=== PATIENT | female | born 1970 | race Caucasian/White ===

== ENCOUNTER 2016-05-24 07:30 | Emergency (ER) | payer MEDICAID, OTHER ==
[~2016-05-24] VITALS: Wt 69.0 kg
[~2016-05-24 07:30] MED LIST: IBUP100T33
[2016-05-24] MEDS ORDERED: SOD CHLORIDE 0.9% 1,000 ML IV STA (07:41)
[2016-05-24] MEDS ORDERED: ONDANSETRON 4 MG INJ IV STA (07:41)
[2016-05-24] MEDS ORDERED: LORAZEPAM 2 MG INJ IV ONE (08:00)
[2016-05-24 08:20] LABS: ADD SCAN DIFF NO
[2016-05-24] MEDS ORDERED: ONDANSETRON (ODT) 4 MG TAB ODT STA ×2 (08:21→10:45)
[2016-05-24] MEDS ORDERED: LORAZEPAM 1 MG TAB PO ONE (08:30)
[2016-05-24 08:32] LABS: BASOPHILS % 0.1 % (0.0-2.0); HEMATOCRIT 38.9 % (37.0-47.0); HEMOGLOBIN 13.2 g/dl (12.0-16.0); LYMPHOCYTES # 0.6 10^3/ul (0.8-2.9); LYMPHOCYTES % 6.6 % (15.0-51.0); MEAN CORPUSCULAR HEMOGLOBIN 33.2 pg (29.0-33.0); MEAN CORPUSCULAR HGB CONC 33.9 g/dl (32.0-37.0); MEAN CORPUSCULAR VOLUME 97.7 fl (82.0-101.0); MEAN PLATELET VOLUME 10.7 fl (7.4-10.4); MONOCYTE # 0.2 10^3/ul (0.3-0.9); MONOCYTES % 2.1 % (0.0-11.0); NEUTROPHIL # 8.4 10^3/ul (1.6-7.5); NEUTROPHILS % 90.8 % (39.0-77.0); PLATELET COUNT 242 10^3/UL (140-415); RED BLOOD COUNT 3.98 10^6/ul (4.20-5.40); RED CELL DISTRIBUTION WIDTH 12.8 % (11.5-14.5); WHITE BLOOD COUNT 9.2 10^3/ul (4.8-10.8)
[2016-05-24 09:41] LABS: ALBUMIN 4.4 g/dl (3.3-4.9); POTASSIUM 3.8 mmol/L (3.5-5.1)
[2016-05-24 09:43] LABS: BILIRUBIN,INDIRECT 0.4 mg/dl (0-1.1); BILIRUBIN,TOTAL 0.4 mg/dl (0.2-1.3); CREATININE 0.68 mg/dl (0.44-1.00)
[2016-05-24 09:44] LABS: ALBUMIN/GLOBULIN RATIO 1.37; CALCIUM 9.6 mg/dl (8.4-10.2); TOTAL PROTEIN 7.6 g/dl (6.1-8.1)
[2016-05-24] MEDS ORDERED: ONDA4TAB14 PO (10:46)
--- NOTE | 2016-05-24 11:04 | ERD ---
ER Documentation Chief Complaint Date/Time DATE: 05/24/16 TIME: 11:02 Chief Complaint NAUSEA AND VOMITING SINCE LAST NIGHT. IN CUSTODY OF [employer]. HPI Patient is a 46-year-old female with back pain who presents with abdominal pain and vomiting. The patient was brought in by police. The patient says that she has been vomiting profusely. The symptoms started yesterday at noon but she said they have really been there for the past 8 weeks. She tried Librium and Compazine. She was feeling weak. She says "I have a viral infection and a staph infection". She had subjective fever. She also had diarrhea. She says that her pain is in the upper abdomen. She says "I feel something moving inside me". She says that her last alcohol was 4 days ago. Upon review of old medical records the patient one previous visit to the ER in 2009. Review of the emergency department information exchange system shows visits for separate emergency departments. She does not currently have a primary doctor. She has had appendectomy and cholecystectomy in the past. ROS All systems reviewed and are negative except as per history of present illness. Medications Home Meds Active Scripts Ondansetron (Ondansetron Odt) 4 Mg Tab.rapdis, 4 MG PO Q6H Y for NAUSEA AND/OR VOMITING, #30 TAB Prov:BRENDA BARRIENTOS MD 05/24/16 Discontinued Reported Medications Ibuprofen (Motrin) 100 Mg Tablet 09/02/09 [None] No Conflict Check 09/01/09 Allergies Allergies: Coded Allergies: No Known Allergies (Verified Allergy, Mild, 05/24/16) PMhx/Soc Medical and Surgical Hx: pt denies Medical Hx History of Surgery: No Anesthesia Reaction: No Hx Neurological Disorder: No Hx Respiratory Disorders: No Hx Cardiac Disorders: No Hx Psychiatric Problems: No Hx Miscellaneous Medical Probl: No Hx Alcohol Use: No Hx Substance Use: No Hx Tobacco Use: No Smoking Status: Never smoker FmHx Family History: No diabetes Physical Exam Vitals Vital Signs Date Time Temp Pulse Resp B/P Pulse Ox O2 Delivery O2 Flow Rate FiO2 05/24/16 07:37 98.5 68 20 126/75 95 Physical Exam Const: Mild distress Head: Atraumatic Eyes: Normal Conjunctiva ENT: Normal External Ears, Nose and Mouth. Neck: Full range of motion..~ No meningismus. Resp: Clear to auscultation bilaterally Cardio: Regular rate and rhythm, no murmurs Abd: Soft, upper epigastric pain without rebound or guarding Skin: No petechiae or rashes Back: No midline or flank tenderness Ext: No cyanosis, or edema Neur: Awake and alert Psych: Normal Mood and Affect Result Diagram: 05/24/16 0800 05/24/16 0915 Results 24 hrs Laboratory Tests Test 05/24/16 08:00 05/24/16 09:15 White Blood Count 9.210^3/ul Red Blood Count 3.9810^6/ul Hemoglobin 13.2g/dl Hematocrit 38.9% Mean Corpuscular Volume 97.7fl Mean Corpuscular Hemoglobin 33.2pg Mean Corpuscular Hemoglobin Concent 33.9g/dl Red Cell Distribution Width 12.8% Platelet Count 77822^3/UL Mean Platelet Volume 10.7fl Neutrophils % 90.8% Lymphocytes % 6.6% Monocytes % 2.1% Eosinophils % 0.0% Basophils % 0.1% Nucleated Red Blood Cells % 0.0/100WBC Neutrophils # 8.410^3/ul Lymphocytes # 0.610^3/ul Monocytes # 0.210^3/ul Eosinophils # 0.010^3/ul Basophils # 0.010^3/ul Nucleated Red Blood Cells # 0.010^3/ul Sodium Level 138mmol/L Potassium Level 3.8mmol/L Chloride Level 99mmol/L Carbon Dioxide Level 27mmol/L Anion Gap 16 Blood Urea Nitrogen 11mg/dl Creatinine 0.68mg/dl Glucose Level 146mg/dl Calcium Level 9.6mg/dl Total Bilirubin 0.4mg/dl Direct Bilirubin 0.00mg/dl Indirect Bilirubin 0.4mg/dl Aspartate Amino Transf (AST/SGOT) 37IU/L Alanine Aminotransferase (ALT/SGPT) 38IU/L Alkaline Phosphatase 108IU/L Total Protein 7.6g/dl Albumin 4.4g/dl Globulin 3.20g/dl Albumin/Globulin Ratio 1.37 Lipase 64U/L Serum HCG, Qualitative NEGATIVE Current Medications Medications (Trade) Dose Ordered Sig/[place]ico Route PRN Reason Start Time Stop Time Status Last Admin Dose Admin Sodium Chloride (NS) 1,000 ml @ 1,000 mls/hr Q1H STAT IV 05/24/16 07:41 05/24/16 08:22 DC Ondansetron HCl (Zofran Inj) 4 mg ONCE STAT IV 05/24/16 07:41 05/24/16 08:22 DC Lorazepam (Ativan) 1 mg ONCE ONCE IV 05/24/16 08:00 05/24/16 08:22 DC Ondansetron HCl (Zofran Odt) 4 mg ONCE STAT ODT 05/24/16 08:21 05/24/16 08:22 DC 05/24/16 09:25 Lorazepam (Ativan) 1 mg ONCE ONCE PO 05/24/16 08:30 05/24/16 08:31 DC 05/24/16 09:25 Ondansetron HCl (Zofran Odt) 4 mg ONCE STAT ODT 05/24/16 10:45 05/24/16 10:46 DC 05/24/16 10:49 Procedures/MDM Smoking Cessation Therapy: Pt. was lectured for greater than 3 minutes on the health risks of continued smoking and the benefits of cessation. Patient is a 46-year-old female who presents with abdominal pain and vomiting. The patient has already had a cholecystectomy and appendectomy. Her laboratory studies are basically normal with normal electrolytes. She has a normal lipase and liver tests. At this point I doubt cholecystitis, pancreatitis, appendicitis, or bowel obstruction. The patient will be discharged to police custody. She was given Zofran and Ativan in the emergency department. I doubt delirium tremens. She can return for any worsening symptoms. She should follow -up with her primary doctor within 24-48 hours. Departure Diagnosis: Primary Impression: Nausea and vomiting Vomiting type: unspecified Vomiting Intractability: non-intractable Qualified Code: R11.2 - Non-intractable vomiting with nausea, unspecified vomiting type Additional Impression: Abdominal pain Abdominal location: epigastric Qualified Code: R10.13 - Epigastric pain Condition: Fair Patient Instructions: Nausea and Vomiting-Adult Referrals: COMM[facility]IN[facility] YOU HAVE RECEIVED A MEDICAL SCREENING EXAM AND THE RESULTS INDICATE THAT YOU DO NOT HAVE A CONDITION THAT REQUIRES URGENT TREATMENT IN THE EMERGENCY DEPARTMENT. FURTHER EVALUATION AND TREATMENT OF YOUR CONDITION CAN WAIT UNTIL YOU ARE SEEN IN YOUR DOCTORS OFFICE WITHIN THE NEXT 1-2 DAYS. IT IS YOUR RESPONSIBILITY TO MAKE AN APPOINTMENT FOR FOLOW-UP CARE. IF YOU HAVE A PRIMARY DOCTOR --you should call your primary doctor and schedule an appointment IF YOU DO NOT HAVE A PRIMARY DOCTOR YOU CAN CALL OUR PHYSICIAN REFERRAL HOTLINE AT IF YOU CAN NOT AFFORD TO SEE A PHYSICIAN YOU CAN CHOSE FROM THE FOLLOWING [facility] [address] [facility] [address] [facility] [facility] [address] [facility] [address] [facility] [address] [address] Additional Instructions: Call your primary care doctor TOMORROW for an appointment during the next 1-2 days.See the doctor sooner or return here if your condition worsens before your appointment time. BRENDA BARRIENTOS MD May 24, 2016 11:04
== END 2016-05-24 11:20 | disposition home or self-care (01) ==
LOC: E/R 07:30
DX: R11.2 Nausea with vomiting, unspecified (principal); R10.13 Epigastric pain
CPT/HCPCS: 36415; 80053; 83690; 84703; 85025; 99283; J2060; J2405; J7030